=== PATIENT | male | born 1985 | race Two or more races ===

== ENCOUNTER 2024-07-12 16:20 | Inpatient (IN) | payer MEDICAID, SELFPAY ==
[2024-07-12 16:23] VITALS: BP 115/71; PULSE 84; RESP 17; TEMP 36.9; O2SAT 100; BMI 23.7
--- NOTE | 2024-07-12 16:37 | XR_ITS ---
Examination: Hand, left 3 views Technique: Hand AP, oblique, lateral 3 views Date and time of exam: July 22, 2024 1725 hrs. Indications: Redness swelling and pain involving the hand today. Findings: Severe soft tissue swelling surrounding the first digit Air densities in the soft tissue adjacent to the proximal and middle phalanges first digit On the oblique view suspicious for fracture at the base of the distal phalanx first digit Also suspicious for early cortical erosion involving the shaft of the distal phalanx first digit Impression: Suspicious for fracture at the base of the distal phalanx first digit Suspicious for early cortical bone erosion involving the midshaft of the distal phalanx first digit, consider MRI hand without contrast follow-up
--- NOTE | 2024-07-12 17:16 | PD.EDRME ---
Rapid Medical Screening Exam RME Arrival date/time: 07/12/24 16:20 49-year-old male presents to the emergency department in the custody of the [place] [employer] patient has infection of his left hand patient is here to be cleared prior to being discharged to correction Patient appears to have significant infection of the left hand initial lab work and imaging obtained Chief Complaint: Medical Clearance Vital signs: Vital Signs Temperature 98.5 F 07/12/24 16:23 Pulse Rate 84 07/12/24 16:23 Respiratory Rate 17 07/12/24 16:23 Blood Pressure 115/71 07/12/24 16:23 Pulse Oximetry (%) 100 07/12/24 16:23 Oxygen Delivery Method Room Air 07/12/24 16:23
[2024-07-12 17:28] LABS: Lactate (Lactic Acid) 0.7 mMol/L (0.4-2.0)
[2024-07-12 17:31] LABS: Basophils # (Auto) 0.1 Thou/mm3 (0.0-0.2); Basophils % (Auto) 1 % (0-2.5); Eosinophils # (Auto) 0.3 Thou/mm3 (0.0-0.5); Eosinophils % (Auto) 2 % (0-10); Hemoglobin 11.1 g/dL (13.5-16.0); Immature Granulocytes % (Auto) 4 % (0-0); Lymphocytes # (Auto) 1.9 Thou/mm3 (1.0-4.8); Lymphocytes % (Auto) 17 % (10-50); Mean Corpuscular HGB Conc 33.6 g/dl (31.0-37.0); Mean Corpuscular Hemoglobin 30.2 pg (25.0-35.0); Mean Corpuscular Volume 90 fL (80-100); Monocytes % (Auto) 9 % (0-12); Neutrophils # (Auto) 7.8 Thou/mm3 (1.8-7.7); Neutrophils % (Auto) 67 % (37-80); Nucleated Red Blood Cell % 0 /100 WBC (0); Platelet Count 551 Thou/mm3 (140-440); RDW Standard Deviation 40.9 fL (35.1-43.9); Red Blood Count 3.68 Miln/mm3 (4.50-5.90); White Blood Count 11.7 Thou/mm3 (3.8-10.6)
[2024-07-12 17:41] LABS: Sed Rate (ESR) 46 mm/hr (0-15)
[2024-07-12 17:43] LABS: INR 1.1 (0.9-1.3); Prothrombin Time 11.7 Seconds (9.0-12.2)
[2024-07-12 17:57] LABS: Alanine Aminotransferase 33 U/L (10-49); Albumin, Serum 3.4 gm/dL (3.5-5.0); Alkaline Phosphatase 86 U/L (46-116); Anion Gap 5 (7-16); Aspartate Amino Transferase 17 U/L (0-34); BUN/Creatinine Ratio 21 Ratio (12-20); Bilirubin,Total 0.2 mg/dL (0.3-1.2); Blood Urea Nitrogen 15 mg/dL (9-23); Calcium 8.6 mg/dL (8.3-10.6); Calcium (Corrected) 9.1 mg/dL (8.5-10.1); Carbon Dioxide 28.2 mMol/L (20.0-31.0); Chloride 102 mMol/L (98-107); Creatinine (Component) 0.7 mg/dL (0.6-1.3); Estimated Creatinine Clearance 127.9 mL/min (>60); Globulin 3.4 gm/dL (2.3-3.5); Glucose 95 mg/dL (74-106); Osmolality,Calculated 270 (275-295); Potassium 3.7 mMol/L (3.4-5.1); Procalcitonin 0.06 ng/ml (0.0-0.49); Sodium 135 mMol/L (136-145); Total Protein 6.8 gm/dL (5.7-8.2); eGFR > 60 See Note
[2024-07-12] MEDS: PIPER/TAZO INJ 3.375 GM in SODIUM CHLORIDE 0.9% (Popper) 50 ML IV (18:37)
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
[2024-07-12] MEDS: Vancomycin Inj 1,000 MG in SODIUM CHLORIDE 0.9% 250 ML 250 ML 150 MG IV (19:43)
--- NOTE | 2024-07-12 20:09 | XR_ITS ---
Examination: CT left hand, without contrast. 2-D sagittal reconstructions. 2-D coronal reconstructions. 3-D reconstructions. Date and time of exam:July 22, 2024 10:55 PM Indications: Redness swelling and lump in the hands beginning 5 days ago CTDI: vol (mGy):3.22 DLP: (mGycm):89.8 Technique: Multiple 1.25 mm axial sections of the left hand post intravenous administration 60 cc Isovue-370 60 cc Isovue-370 have been obtained. 2-D sagittal and coronal reconstructions have been obtained. 3-D reconstructions have been obtained. Low dose protocols were performed. One or more of the following dose reduction techniques were used; automated exposure control, adjustment of the mA and/or KV according to patient size, use of iterative reconstruction technique. Findings: No fracture base of the first metacarpal is confirmed There is cortical bone destruction involving the shaft of the distal phalanx first digit, coronal images 26 and 27 No opaque foreign body No soft tissue abscess Impression: Cortical bone destruction involving the distal phalanx first digit consistent with osteomyelitis MRI hand without contrast follow-up would best assess the full extent of osteomyelitis
[2024-07-12 22:52] LABS: Amphetamine/Methamp Scrn,U Positive (Negative); Barbiturate Screen,Urine Negative (Negative); Benzodiazepines Screen,Urine Negative (Negative); Benzoylecgonine Screen, Ur Negative (Negative); Fentanyl Screen,Urine Negative (Negative); Opiate Screen,Urine Negative (Negative); THC Screen,Urine Positive (Negative)
[2024-07-13] MEDS: DIPHTH,PERTUSS(ACELL),TET VAC 0.5 ML SYR- ADULT IMi (00:16)
[2024-07-13] MEDS: AMPICILLIN/SULBAC INJ 1.5 GM in SODIUM CHLORIDE 0.9% (Popper) 50 ML IV ×5 (00:17→23:46)
[2024-07-13 00:24] VITALS: BMI 22.4
[2024-07-13 00:43] VITALS: BP 116/69; PULSE 75; RESP 17; TEMP 36.6; O2SAT 99
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
[2024-07-13 04:00] VITALS: BP 117/73; PULSE 73; RESP 16; TEMP 36.7; O2SAT 98
[2024-07-13 06:20] LABS: Basophils # (Auto) 0.1 Thou/mm3 (0.0-0.2); Basophils % (Auto) 1 % (0-2.5); Eosinophils # (Auto) 0.3 Thou/mm3 (0.0-0.5); Eosinophils % (Auto) 2 % (0-10); Hematocrit 36.6 % (41.0-53.0); Hemoglobin 12.1 g/dL (13.5-16.0); Immature Granulocytes % (Auto) 3 % (0-0); Immature Granulocytes Auto 0.33 Thou/mm3 (0.00-0.00); Lymphocytes # (Auto) 1.6 Thou/mm3 (1.0-4.8); Lymphocytes % (Auto) 12 % (10-50); Mean Corpuscular HGB Conc 33.1 g/dl (31.0-37.0); Mean Corpuscular Volume 91 fL (80-100); Monocytes % (Auto) 8 % (0-12); Neutrophils # (Auto) 9.7 Thou/mm3 (1.8-7.7); Neutrophils % (Auto) 75 % (37-80); Nucleated Red Blood Cell % 0 /100 WBC (0); Platelet Count 570 Thou/mm3 (140-440); RDW Standard Deviation 42.1 fL (35.1-43.9); Red Blood Count 4.04 Miln/mm3 (4.50-5.90); White Blood Count 12.9 Thou/mm3 (3.8-10.6)
[2024-07-13 06:42] LABS: Glucose Estimated Average 108 mg/dL (80-131); Hemoglobin A1C 5.4 % Hgb (4.8-6.0)
[2024-07-13 06:48] LABS: Alanine Aminotransferase 30 U/L (10-49); Albumin, Serum 3.6 gm/dL (3.5-5.0); Albumin/Globulin Ratio 1.1 (1.2-2.2); Alkaline Phosphatase 87 U/L (46-116); Anion Gap 7 (7-16); Aspartate Amino Transferase 14 U/L (0-34); BUN/Creatinine Ratio 20 Ratio (12-20); Bilirubin,Total 0.2 mg/dL (0.3-1.2); Blood Urea Nitrogen 12 mg/dL (9-23); Calcium 8.7 mg/dL (8.3-10.6); Carbon Dioxide 27.5 mMol/L (20.0-31.0); Cardiac Risk Estimate 3.8 RATIO (4.0-6.7); Chloride 101 mMol/L (98-107); Cholesterol 119 mg/dL (132-200); Creatinine (Component) 0.6 mg/dL (0.6-1.3); Estimated Creatinine Clearance 147.4 mL/min (>60); Globulin 3.4 gm/dL (2.3-3.5); Glucose 95 mg/dL (74-106); HDL Cholesterol 31 mg/dL (40-60); LDL Cholesterol,Calculated 72 mg/dL (0-130); Magnesium 2.1 mg/dL (1.6-2.6); Osmolality,Calculated 269 (275-295); Phosphorous 3.1 mg/dL (2.4-5.1); Sodium 135 mMol/L (136-145); Thyroid Stimulating Hormone 0.91 uIU/mL (0.55-4.78); Triglycerides 81 mg/dL (30-150); eGFR > 60 See Note
[2024-07-13 06:53] LABS: INR 1.1 (0.9-1.3); Partial Thromboplastin Time 29.4 Seconds (22.0-36.0); Prothrombin Time 11.7 Seconds (9.0-12.2)
[2024-07-13 08:00] VITALS: BP 123/66; PULSE 80; RESP 20; TEMP 36.2; O2SAT 99
[2024-07-13] MEDS: ENOXAPARIN SOD INJ 40 MG/0.4 ML SYRINGE SC (08:02)
[2024-07-13] MEDS: VANCOMYCIN/WATER 1250 MG IVPB 250 ML 120 MG IV ×2 (10:06→21:17)
[2024-07-13 11:39] VITALS: BP 110/72; PULSE 73; RESP 18; TEMP 36.5; O2SAT 99
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
[2024-07-13 16:00] VITALS: BP 114/90; PULSE 71; RESP 18; TEMP 36.3; O2SAT 95
[2024-07-13 20:00] VITALS: BP 118/75; PULSE 98; RESP 20; TEMP 36.3; O2SAT 96
[2024-07-13] MEDS: THIAMINE 100 MG TABLET PO (20:04)
[2024-07-13] MEDS: FOLIC ACID 1 MG TABLET PO (20:04)
[2024-07-13] MEDS: SODIUM CHLORIDE 0.9% 1000 ML 1,000 ML 75 ML IV (21:16)
[2024-07-14] VITALS (12 sets, daily range): BP systolic 119–155; BP diastolic 66–96; PULSE 60–100; RESP 12–98; TEMP 36.2–37.6; O2SAT 11–100
[2024-07-14] MEDS: AMPICILLIN/SULBAC INJ 1.5 GM in SODIUM CHLORIDE 0.9% (Popper) 50 ML IV ×2 (05:31→17:22)
[2024-07-14 06:17] LABS: Basophils # (Auto) 0.1 Thou/mm3 (0.0-0.2); Basophils % (Auto) 1 % (0-2.5); Eosinophils # (Auto) 0.4 Thou/mm3 (0.0-0.5); Eosinophils % (Auto) 4 % (0-10); Hemoglobin 12.6 g/dL (13.5-16.0); Immature Granulocytes % (Auto) 3 % (0-0); Immature Granulocytes Auto 0.29 Thou/mm3 (0.00-0.00); Lymphocytes # (Auto) 1.5 Thou/mm3 (1.0-4.8); Lymphocytes % (Auto) 14 % (10-50); Mean Corpuscular HGB Conc 33.2 g/dl (31.0-37.0); Mean Corpuscular Hemoglobin 30.3 pg (25.0-35.0); Mean Corpuscular Volume 91 fL (80-100); Monocytes % (Auto) 9 % (0-12); Neutrophils # (Auto) 7.7 Thou/mm3 (1.8-7.7); Neutrophils % (Auto) 70 % (37-80); Nucleated Red Blood Cell % 0 /100 WBC (0); Platelet Count 550 Thou/mm3 (140-440); RDW Standard Deviation 42.8 fL (35.1-43.9); Red Blood Count 4.16 Miln/mm3 (4.50-5.90)
[2024-07-14 06:34] LABS: Alanine Aminotransferase 23 U/L (10-49); Albumin, Serum 3.7 gm/dL (3.5-5.0); Albumin/Globulin Ratio 1.1 (1.2-2.2); Alkaline Phosphatase 85 U/L (46-116); Anion Gap 6 (7-16); Aspartate Amino Transferase 11 U/L (0-34); BUN/Creatinine Ratio 19 Ratio (12-20); Bilirubin,Total 0.2 mg/dL (0.3-1.2); Blood Urea Nitrogen 13 mg/dL (9-23); Calcium 9.1 mg/dL (8.3-10.6); Calcium (Corrected) 9.3 mg/dL (8.5-10.1); Carbon Dioxide 28.4 mMol/L (20.0-31.0); Chloride 103 mMol/L (98-107); Creatinine (Component) 0.7 mg/dL (0.6-1.3); Estimated Creatinine Clearance 126.3 mL/min (>60); Globulin 3.5 gm/dL (2.3-3.5); Glucose 103 mg/dL (74-106); Magnesium 2.1 mg/dL (1.6-2.6); Osmolality,Calculated 273 (275-295); Phosphorous 3.3 mg/dL (2.4-5.1); Sodium 137 mMol/L (136-145); Total Protein 7.2 gm/dL (5.7-8.2); eGFR > 60 See Note
[2024-07-14 09:28] LABS: Vancomycin,Trough 8.6 mcg/mL (5.0-10.0)
[2024-07-14] MEDS: VANCOMYCIN/WATER 1250 MG IVPB 250 ML 120 MG IV ×2 (11:06→21:33)
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
--- NOTE | 2024-07-14 13:08 | SUR.PHASEI ---
pt received from OR in recovery bay 1. pt obtunded, breathing unlabored lma in place nc at 6 l. v/s stable. pt dressing to left hand cdi. report received from Amado RUSSO and Augie HENDRIX.
--- NOTE | 2024-07-14 13:13 | ESOP_ITS ---
Date of Procedure 07/14/24 Pre Op Diagnosis 1. Infection of the thenar eminence of the left hand. 2. Osteomyelitis of the distal phalanx of the left thumb 3. Infected tumor over the dorsal aspect of the first webspace of left hand Post Op Diagnosis Same Procedure 1. Irrigation debridement of the wound over the dorsal aspect of the first web space 2. Irrigation debridement and curettaged of the distal phalanx of the left thumb 3. I&D of the thenar eminence Findings Refer dictation Procedure Description The patient was given general endotracheal anesthesia. Once satisfactory anesthesia achieved a tourniquet was placed on left upper arm. Following that the part was thoroughly prepped and draped. After using Esmarch the tourniquet pressure was raised to 250 mmHg. Esmarch was used from the wrist crease proximally. 1. Irrigation debridement of the wound over the dorsal web space the wound was about 2 inches in diameter. There is a skin loss. Some bleeding was present. Some oozing was present. Wound culture swab was obtained and sent for aerobic anaerobic cultures history and for Gram staining Following that all devitalized tissue infected tissue was removed. Once the healthy tissue was encountered the debridement was stopped. 2. Irrigation debridement and curettage of the distal phalanx of the left thum b. The skin over the distal aspect of the flexor aspect of thumb was necrotic and macerated. Those were excised. Following that with the blunt and sharp dissection the distal phalanx was exposed. With the help of curette the bone was curetted out especially over the anterior aspect of the flexor aspect. 3 irrigation debridement of the thenar eminence. A skin incision was placed horizontally. The size of the incision was about half inches. Following that with the blunt and sharp dissection it was open. Some edematous fluid came out. No wilmer pus came out. Following that debridement of all the wound was again done to make sure no infected tissue was left. Wound was irrigated with antibiotic solution and hydrogen peroxide solution. Following that half inch iodoform gauze was packed and sterile dressing was applied. Tourniquet pressure was released Patient tolerated procedure well. Estimated blood loss 3 to 4 mL. Prognosis in this case is very much guarded Anesthesia GETA Pathology / specimen None Estimated Blood Loss 5 Surgeon Demond Brennan MD Surgical Staff Operation Date: 07/14/24 12:00 Case Staff PROTECTIVE SERVICES SOCIAL WORKER: [employer]
[2024-07-14] MEDS: ACETAMINOPHEN IVPB 1,000 MG/100 ML VIAL 250 MG IV (13:21)
--- NOTE | 2024-07-14 13:29 | SUR.PHASEI ---
pt able to tolerate oral fluids without difficulty swallowing or nausea/vomiting.
[2024-07-14] MEDS: fentaNYL CIT INJ 50 mCg/ML AMP 2ML IV (13:38)
--- NOTE | 2024-07-14 13:48 | SUR.PHASEI ---
pt awake and alert, breathing unlabored on room air. v/s stable. pt dressing to left hand cdi. report called to Jackie HENDRIX. pt will be transferred to room at this time.
[2024-07-14] MEDS: SODIUM CHLORIDE 0.9% 1000 ML 1,000 ML 75 ML IV (14:11)
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
--- NOTE | 2024-07-14 16:08 | PC.SS ---
SS attempted to complete initial; pt had just left for surgery (11:50AM)
[2024-07-14] MEDS: THIAMINE 100 MG TABLET PO (21:33)
[2024-07-14] MEDS: FOLIC ACID 1 MG TABLET PO (21:33)
[2024-07-15] VITALS (7 sets, daily range): BP systolic 105–134; BP diastolic 70–85; PULSE 65–102; RESP 17–97; TEMP 36.7–37.6; O2SAT 97–99
[2024-07-15] MEDS: AMPICILLIN/SULBAC INJ 1.5 GM in SODIUM CHLORIDE 0.9% (Popper) 50 ML IV ×4 (00:02→17:52)
[2024-07-15] MEDS: VANCOMYCIN/WATER 1250 MG IVPB 250 ML 120 MG IV ×3 (05:55→22:37)
[2024-07-15] MEDS: SODIUM CHLORIDE 0.9% 1000 ML 1,000 ML 75 ML IV (05:58)
[2024-07-15 06:31] LABS: Basophils # (Auto) 0.1 Thou/mm3 (0.0-0.2); Basophils % (Auto) 1 % (0-2.5); Eosinophils # (Auto) 0.5 Thou/mm3 (0.0-0.5); Eosinophils % (Auto) 4 % (0-10); Hematocrit 37.4 % (41.0-53.0); Hemoglobin 12.7 g/dL (13.5-16.0); Immature Granulocytes % (Auto) 1 % (0-0); Immature Granulocytes Auto 0.15 Thou/mm3 (0.00-0.00); Lymphocytes # (Auto) 1.1 Thou/mm3 (1.0-4.8); Lymphocytes % (Auto) 10 % (10-50); Mean Corpuscular Hemoglobin 30.8 pg (25.0-35.0); Mean Corpuscular Volume 91 fL (80-100); Monocytes % (Auto) 8 % (0-12); Neutrophils % (Auto) 77 % (37-80); Nucleated Red Blood Cell % 0 /100 WBC (0); Platelet Count 571 Thou/mm3 (140-440); RDW Standard Deviation 41.3 fL (35.1-43.9); Red Blood Count 4.13 Miln/mm3 (4.50-5.90); White Blood Count 11.8 Thou/mm3 (3.8-10.6)
[2024-07-15 06:49] LABS: Alanine Aminotransferase 22 U/L (10-49); Albumin, Serum 3.7 gm/dL (3.5-5.0); Alkaline Phosphatase 85 U/L (46-116); Anion Gap 7 (7-16); Aspartate Amino Transferase 14 U/L (0-34); BUN/Creatinine Ratio 15 Ratio (12-20); Bilirubin,Total 0.2 mg/dL (0.3-1.2); Blood Urea Nitrogen 9 mg/dL (9-23); Calcium 9.4 mg/dL (8.3-10.6); Calcium (Corrected) 9.6 mg/dL (8.5-10.1); Carbon Dioxide 27.9 mMol/L (20.0-31.0); Chloride 104 mMol/L (98-107); Creatinine (Component) 0.6 mg/dL (0.6-1.3); Estimated Creatinine Clearance 147.4 mL/min (>60); Globulin 3.6 gm/dL (2.3-3.5); Glucose 100 mg/dL (74-106); Osmolality,Calculated 276 (275-295); Phosphorous 3.2 mg/dL (2.4-5.1); Potassium 3.8 mMol/L (3.4-5.1); Sodium 139 mMol/L (136-145); Total Protein 7.3 gm/dL (5.7-8.2); eGFR > 60 See Note
[2024-07-15] MEDS: FOLIC ACID 1 MG TABLET PO ×2 (08:37→20:07)
[2024-07-15] MEDS: ENOXAPARIN SOD INJ 40 MG/0.4 ML SYRINGE SC (08:37)
[2024-07-15] MEDS: THIAMINE 100 MG TABLET PO ×2 (08:37→20:07)
--- NOTE | 2024-07-15 13:48 | PC.SS ---
Patient Hiren Yang is a 39 Year old male admitted for Possible Osteomyelitis. Patient reports he does not have a home address and reports he usually stays at the [facility]. 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 Patient reports choice of pharmacy is [facility] and does not have a PCP. Patient does not utilize any source of DME to assist with ambulation. Patient reports that at time of discharge he will need assistance from for transportation. Discharge plan out to [facility].
[2024-07-15 14:37] LABS: Vancomycin,Trough 10.9 mcg/mL (5.0-10.0)
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
[2024-07-16] VITALS: BP 114/79; PULSE 75; RESP 18; TEMP 36.8; O2SAT 98
[2024-07-16] MEDS: AMPICILLIN/SULBAC INJ 1.5 GM in SODIUM CHLORIDE 0.9% (Popper) 50 ML IV ×4 (01:28→17:33)
[2024-07-16] MEDS: SODIUM CHLORIDE 0.9% 1000 ML 1,000 ML 75 ML IV (03:46)
[2024-07-16 04:00] VITALS: BP 112/87; PULSE 76; RESP 18; TEMP 36.9; O2SAT 98
[2024-07-16 06:08] LABS: Basophils # (Auto) 0.1 Thou/mm3 (0.0-0.2); Basophils % (Auto) 1 % (0-2.5); Eosinophils # (Auto) 0.5 Thou/mm3 (0.0-0.5); Eosinophils % (Auto) 6 % (0-10); Hematocrit 37.8 % (41.0-53.0); Hemoglobin 12.6 g/dL (13.5-16.0); Immature Granulocytes % (Auto) 1 % (0-0); Lymphocytes # (Auto) 1.3 Thou/mm3 (1.0-4.8); Lymphocytes % (Auto) 16 % (10-50); Mean Corpuscular HGB Conc 33.3 g/dl (31.0-37.0); Mean Corpuscular Hemoglobin 29.9 pg (25.0-35.0); Mean Corpuscular Volume 90 fL (80-100); Monocytes # (Auto) 0.7 Thou/mm3 (0.0-0.8); Monocytes % (Auto) 9 % (0-12); Neutrophils # (Auto) 5.5 Thou/mm3 (1.8-7.7); Neutrophils % (Auto) 68 % (37-80); Nucleated Red Blood Cell % 0 /100 WBC (0); Platelet Count 546 Thou/mm3 (140-440); RDW Standard Deviation 41.2 fL (35.1-43.9); Red Blood Count 4.21 Miln/mm3 (4.50-5.90); White Blood Count 8.1 Thou/mm3 (3.8-10.6)
[2024-07-16] MEDS: VANCOMYCIN/WATER 1250 MG IVPB 250 ML 120 MG IV ×3 (06:17→21:38)
[2024-07-16 06:37] LABS: Alanine Aminotransferase 18 U/L (10-49); Albumin, Serum 3.8 gm/dL (3.5-5.0); Albumin/Globulin Ratio 1.1 (1.2-2.2); Alkaline Phosphatase 82 U/L (46-116); Anion Gap 7 (7-16); Aspartate Amino Transferase 10 U/L (0-34); BUN/Creatinine Ratio 18 Ratio (12-20); Bilirubin,Total 0.2 mg/dL (0.3-1.2); Blood Urea Nitrogen 11 mg/dL (9-23); Calcium 9.3 mg/dL (8.3-10.6); Calcium (Corrected) 9.5 mg/dL (8.5-10.1); Chloride 103 mMol/L (98-107); Creatinine (Component) 0.6 mg/dL (0.6-1.3); Estimated Creatinine Clearance 147.4 mL/min (>60); Globulin 3.5 gm/dL (2.3-3.5); Glucose 101 mg/dL (74-106); Magnesium 1.9 mg/dL (1.6-2.6); Osmolality,Calculated 275 (275-295); Phosphorous 3.6 mg/dL (2.4-5.1); Potassium 3.9 mMol/L (3.4-5.1); Sodium 138 mMol/L (136-145); Total Protein 7.3 gm/dL (5.7-8.2); eGFR > 60 See Note
[2024-07-16 08:00] VITALS: BP 104/74; PULSE 74; RESP 18; TEMP 36.2; O2SAT 98
[2024-07-16] MEDS: FOLIC ACID 1 MG TABLET PO ×2 (09:30→21:38)
[2024-07-16] MEDS: THIAMINE 100 MG TABLET PO ×2 (09:30→21:38)
[2024-07-16] MEDS: ENOXAPARIN SOD INJ 40 MG/0.4 ML SYRINGE SC (09:30)
[2024-07-16 10:39] VITALS: BMI 22.3
[2024-07-16 12:00] VITALS: BP 112/67; PULSE 71; RESP 16; TEMP 36.2; O2SAT 98
[2024-07-16 12:21] LABS: INR 1.1 (0.9-1.3); Partial Thromboplastin Time 29.8 Seconds (22.0-36.0)
[2024-07-16 16:00] VITALS: BP 104/74; PULSE 78; RESP 17; TEMP 36.2; O2SAT 98
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
[2024-07-16 20:00] VITALS: BP 112/66; PULSE 88; RESP 18; TEMP 36.9; O2SAT 95
[2024-07-17] VITALS: BP 132/72; PULSE 77; RESP 18; TEMP 36.2; O2SAT 99
[2024-07-17] MEDS: AMPICILLIN/SULBAC INJ 1.5 GM in SODIUM CHLORIDE 0.9% (Popper) 50 ML IV ×3 (00:54→11:15)
[2024-07-17] MEDS: SODIUM CHLORIDE 0.9% 1000 ML 1,000 ML 75 ML IV (00:54)
[2024-07-17 04:00] VITALS: BP 113/69; PULSE 62; RESP 18; TEMP 36.2; O2SAT 98
[2024-07-17 06:00] LABS: Basophils # (Auto) 0.1 Thou/mm3 (0.0-0.2); Basophils % (Auto) 1 % (0-2.5); Eosinophils # (Auto) 0.7 Thou/mm3 (0.0-0.5); Eosinophils % (Auto) 9 % (0-10); Immature Granulocytes % (Auto) 1 % (0-0); Immature Granulocytes Auto 0.09 Thou/mm3 (0.00-0.00); Lymphocytes # (Auto) 1.5 Thou/mm3 (1.0-4.8); Lymphocytes % (Auto) 20 % (10-50); Mean Corpuscular HGB Conc 33.3 g/dl (31.0-37.0); Mean Corpuscular Hemoglobin 30.3 pg (25.0-35.0); Mean Corpuscular Volume 91 fL (80-100); Monocytes # (Auto) 0.7 Thou/mm3 (0.0-0.8); Monocytes % (Auto) 10 % (0-12); Neutrophils # (Auto) 4.3 Thou/mm3 (1.8-7.7); Neutrophils % (Auto) 59 % (37-80); Nucleated Red Blood Cell % 0 /100 WBC (0); Platelet Count 579 Thou/mm3 (140-440); RDW Standard Deviation 41.7 fL (35.1-43.9); Red Blood Count 4.29 Miln/mm3 (4.50-5.90); White Blood Count 7.4 Thou/mm3 (3.8-10.6)
[2024-07-17] MEDS: VANCOMYCIN/WATER 1250 MG IVPB 250 ML 120 MG IV ×2 (06:18→13:18)
[2024-07-17 06:23] LABS: Alanine Aminotransferase 20 U/L (10-49); Albumin, Serum 3.8 gm/dL (3.5-5.0); Albumin/Globulin Ratio 1.1 (1.2-2.2); Alkaline Phosphatase 80 U/L (46-116); Anion Gap 7 (7-16); Aspartate Amino Transferase 17 U/L (0-34); BUN/Creatinine Ratio 23 Ratio (12-20); Bilirubin,Total 0.2 mg/dL (0.3-1.2); Blood Urea Nitrogen 14 mg/dL (9-23); Calcium 9.3 mg/dL (8.3-10.6); Calcium (Corrected) 9.5 mg/dL (8.5-10.1); Carbon Dioxide 26.8 mMol/L (20.0-31.0); Chloride 103 mMol/L (98-107); Creatinine (Component) 0.6 mg/dL (0.6-1.3); Estimated Creatinine Clearance 147.4 mL/min (>60); Globulin 3.5 gm/dL (2.3-3.5); Glucose 89 mg/dL (74-106); Magnesium 1.9 mg/dL (1.6-2.6); Osmolality,Calculated 273 (275-295); Phosphorous 3.2 mg/dL (2.4-5.1); Potassium 4.2 mMol/L (3.4-5.1); Sodium 137 mMol/L (136-145); Total Protein 7.3 gm/dL (5.7-8.2); eGFR > 60 See Note
[2024-07-17 07:37] VITALS: BP 125/75; PULSE 70; RESP 16; TEMP 36; O2SAT 97
[2024-07-17] MEDS: THIAMINE 100 MG TABLET PO (08:12)
[2024-07-17] MEDS: FOLIC ACID 1 MG TABLET PO (08:12)
[2024-07-17] MEDS: ENOXAPARIN SOD INJ 40 MG/0.4 ML SYRINGE SC (08:12)
[2024-07-17 11:47] VITALS: BP 124/80; PULSE 73; RESP 15; TEMP 36.4; O2SAT 99
[2024-07-17 15:55] VITALS: BP 119/77; PULSE 73; RESP 19; TEMP 36; O2SAT 96
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
--- NOTE | 2024-07-17 17:33 | ESPR_ITS ---
RE: CHANCEBIENVENIDO : 1985 DATE OF SERVICE: 07/15/2024 The patient was seen by me again on 07/15/2024. The patient is doing fine. The patient is afebrile. We are awaiting for culture and sensitivity report. Meanwhile, patient is advised to continue with IV antibiotics. Once the report is available, we will give appropriate antibiotics and may discharge him home. I discussed in detail about sending patient to SNF with intravenous antibiotics. Initially, patient agreed, but then he refused to go to retirement facility and wanted oral antibiotics. So, we are awaiting for the result. DT: 17:21:55 TT: 17:31:00 Ref: [id number] - TID: [id number]
--- NOTE | 2024-07-17 17:38 | ESPR_ITS ---
RE: BIENVENIDO FLETCHER : 1985 DATE OF SERVICE: 07/17/2024 The patient was seen by me again on 07/17/2024. The wound culture report came back and it did not grow any bacteria. The dressing change was done. Wound is looking healthy. The patient wanted to go home. Accordingly, after discussion with the hospitalist, decision was made to send patient home on doxycycline. Wound was looking healthy when I changed the dressing. Followup appointment for 07/22/2024 at 03:00 p.m. is advised. DT: 17:22:53 TT: 17:36:00 Ref: [id number] - TID: [id number]
== END 2024-07-17 18:05 | disposition home or self-care (01) | DRG 316 ==
LOC: SERX 19:26 → SERHOLD 22:53 → S3NX 07-13 00:30
PROVIDERS: Nurse Practitioner Primary Care; Orthopaedic Surgery; Radiology Diagnostic Radiology; Student in an Organized Health Care Education/Training Program; Admitting Provider Internal Medicine; Emergency Provider Emergency Medicine; Visit Provider Student in an Organized Health Care Education/Training Program
PROC: 0JDK0ZZ Extraction of Left Hand Subcutaneous Tissue and Fascia, Open Approach (ICD-10-PCS; principal; 2024-07-14 12:00)
DX: M86.8X4 Other osteomyelitis, hand (principal); S62.522A Displaced fracture of distal phalanx of left thumb, initial encounter for closed fracture; T23.002A Burn of unspecified degree of left hand, unspecified site, initial encounter; F15.10 Other stimulant abuse, uncomplicated; F12.10 Cannabis abuse, uncomplicated; F10.10 Alcohol abuse, uncomplicated; F17.210 Nicotine dependence, cigarettes, uncomplicated; Z59.02 Unsheltered homelessness; V86.96XA Unspecified occupant of dirt bike or motor/cross bike injured in nontraffic accident, initial encounter; X11.8XXA Contact with other hot tap-water, initial encounter
CPT/HCPCS: 36415; 73130; 73201; 80053; 80061; 80202; 80307; 83036; 83605; 83735; 84100; 84145; 84443; 85025; 85610; 85652; 85730; 86140; 87040; 87070; 87075; 87081; 87205; 90715; 96365; 96366; 96367; 99285; A4217; A4649; J0131; J0295; J1650; J2250; J2543; J2704; J3010; J3371; J3372; J7030; J7050; Q9967; A9270